=== PATIENT | male | born 1950 | race Caucasian/White ===

== ENCOUNTER 2021-09-28 11:22 | Outpatient (CLI) | payer MEDICARE | END 2021-09-28 11:23 | disposition home or self-care (01) | LOC: CSHWCC 11:22 | PROVIDERS: ATTEND Nurse Practitioner Family | DX: I87.331 Chronic venous hypertension (idiopathic) with ulcer and inflammation of right lower extremity (principal); L97.812 Non-pressure chronic ulcer of other part of right lower leg with fat layer exposed; R60.0 Localized edema; I10 Essential (primary) hypertension; I48.91 Unspecified atrial fibrillation; L40.9 Psoriasis, unspecified; R06.00 Dyspnea, unspecified; F10.21 Alcohol dependence, in remission; I89.0 Lymphedema, not elsewhere classified ==

== ENCOUNTER 2021-10-26 09:39 | Outpatient (CLI) | payer MEDICARE | END 2021-10-26 09:40 | disposition home or self-care (01) | LOC: CSHWCC 09:39 | PROVIDERS: ATTEND Nurse Practitioner Family | DX: I87.331 Chronic venous hypertension (idiopathic) with ulcer and inflammation of right lower extremity (principal); L97.812 Non-pressure chronic ulcer of other part of right lower leg with fat layer exposed; I89.0 Lymphedema, not elsewhere classified; R60.0 Localized edema; F10.21 Alcohol dependence, in remission; I48.91 Unspecified atrial fibrillation; L40.9 Psoriasis, unspecified; R06.00 Dyspnea, unspecified ==

== ENCOUNTER 2021-11-30 12:48 | Outpatient (CLI) | payer MEDICARE | END 2021-11-30 12:49 | disposition home or self-care (01) | LOC: CSHWCC 12:48 | PROVIDERS: ATTEND Nurse Practitioner Family | DX: I87.331 Chronic venous hypertension (idiopathic) with ulcer and inflammation of right lower extremity (principal); L97.812 Non-pressure chronic ulcer of other part of right lower leg with fat layer exposed; I89.0 Lymphedema, not elsewhere classified; R60.0 Localized edema; I48.91 Unspecified atrial fibrillation; F10.21 Alcohol dependence, in remission; L40.9 Psoriasis, unspecified; R06.00 Dyspnea, unspecified ==

== ENCOUNTER 2021-12-14 13:56 | Outpatient (CLI) | payer MEDICARE | END 2021-12-14 13:57 | disposition home or self-care (01) | LOC: CSHWCC 13:56 | PROVIDERS: ATTEND Nurse Practitioner Family | DX: I87.332 Chronic venous hypertension (idiopathic) with ulcer and inflammation of left lower extremity (principal); L97.222 Non-pressure chronic ulcer of left calf with fat layer exposed; I87.331 Chronic venous hypertension (idiopathic) with ulcer and inflammation of right lower extremity; L97.812 Non-pressure chronic ulcer of other part of right lower leg with fat layer exposed; R60.0 Localized edema; F10.21 Alcohol dependence, in remission; I48.91 Unspecified atrial fibrillation; L40.9 Psoriasis, unspecified; I89.0 Lymphedema, not elsewhere classified; R06.00 Dyspnea, unspecified ==

== ENCOUNTER 2022-01-04 14:30 | Outpatient (CLI) | payer MEDICARE | END 2022-01-04 14:31 | disposition home or self-care (01) | LOC: CSHWCC 14:30 | PROVIDERS: ATTEND Nurse Practitioner Family | DX: I87.331 Chronic venous hypertension (idiopathic) with ulcer and inflammation of right lower extremity (principal); I87.332 Chronic venous hypertension (idiopathic) with ulcer and inflammation of left lower extremity; L97.321 Non-pressure chronic ulcer of left ankle limited to breakdown of skin; R60.0 Localized edema | CPT/HCPCS: 97139; G0463; 99214 ==

== ENCOUNTER 2022-01-25 12:51 | Outpatient (CLI) | payer MEDICARE | END 2022-01-25 12:52 | disposition home or self-care (01) | LOC: CSHWCC 12:51 | PROVIDERS: ATTEND Nurse Practitioner Family | DX: R60.0 Localized edema (principal) | CPT/HCPCS: 97139; G0463; 99213 ==